=== PATIENT | male | born 1970 | race Caucasian/White ===

== ENCOUNTER 2025-03-26 15:01 | Emergency (ER) | payer OTHER ==
[~2025-03-26] VITALS: Ht 177.8 cm; Wt 77.1 kg
[2025-03-26 17:15] VITALS: BP 124/80
[2025-03-26 18:16] VITALS: BP 124/80; TEMP 97.8; O2SAT 99
== END 2025-03-26 18:17 | disposition home or self-care (01) ==
LOC: ER 15:01
DX: S93.402A Sprain of unspecified ligament of left ankle, initial encounter (principal); X50.0XXA Overexertion from strenuous movement or load, initial encounter; Y93.89 Activity, other specified; Y92.89 Other specified places as the place of occurrence of the external cause; Y99.9 Unspecified external cause status
CPT/HCPCS: 73630; A4606; A4663